=== PATIENT | male | born 1985 | race Caucasian/White ===

== ENCOUNTER 2017-04-19 14:08 | Inpatient (IN) ==
[2017-04-19] MEDS ORDERED: NS 1,000 ML IV ONE (14:35)
[2017-04-19] MEDS ORDERED: ZOFRAN IV ONE (14:35)
[2017-04-19] MEDS ORDERED: DILAUDID IV ONE ×2 (14:35→17:18)
[2017-04-19 14:47] LABS: MANUAL DIFF NEEDED? NO
[2017-04-19 14:49] LABS: BASO% 0.2 % (0.0-0.8); EOS# 0.01 X1000 (0.0-0.7); EOS% 0.1 % (0.0-10.0); HEMATOCRIT 46.8 % (42.0-52.0); IMM GRAN# 0.03 X1000 (0.0-0.04); IMM GRAN% 0.3 % (0.0-0.5); LYMPH% 9.7 % (20.5-51.1); MCHC 36.3 g/dL (33-37); MCV 88.1 FL (81-99); MONO# 0.87 X1000 (0.11-0.59); MONO% 8.5 % (1.7-9.3); MPV 10.3 FL (7.4-10.4); NEUT% 81.2 % (42.2-75.2); PLT 283 X1000 (130-400); RBC 5.31 XMIL (4.7-6.1)
[2017-04-19 15:10] LABS: AGAP 13; ALBUMIN 4.5 g/dL (3.5-5.0); ALKALINE PHOSPHATASE 70 U/L (32-122); AMYLASE 30 U/L (20-200); BUN 7 mg/dL (8-22); CALCIUM 9.1 mg/dL (8.8-10.2); CHLORIDE 99 mmol/L (98-107); COSMO 273; GOT 16 U/L (10-34); GPT 17 U/L (10-44); LIPASE 17 U/L (13-60); SODIUM 137 mmol/L (136-145); TCO2 25 mmol/L (25-35); TOTAL PROTEIN 7.1 g/dL (6.3-8.3)
[2017-04-19] MEDS ORDERED: TORADOL IV ONE (15:50)
[2017-04-19] MEDS ORDERED: TORADOL IM ONE (15:51)
[2017-04-19] MEDS ORDERED: TORADOL ONE ×2 (15:53→18:26)
--- NOTE | 2017-04-19 16:20 | Diag Imaging Result Doc PS360 ---
CT ABD/PELVIS W/ IV CONT ONLY - 04/19/2017 INDICATION: Lower abd pain TECHNIQUE: A CT dose reduction protocol was used. COMPARISON: None FINDINGS: The lung bases are clear and the heart size is normal. The vermiform appendix is very dilated and inflamed measuring over 1.2 cm. There is a small amount of intraperitoneal free air. There is also a small amount of fluid in the right lower quadrant and in the pelvis. No bowel obstruction. Urinary bladder, prostate, and rectum are normal. IMPRESSION: Perforated acute appendicitis. Very small amount of peritoneal free air. Small amount of free fluid in the right lower quadrant and the pelvis. A report was immediately called to the emergency room physician. Electronically signed by Baldemar Jimenez 04/19/2017 4:18 PM
[2017-04-19] MEDS ORDERED: ZOSYN 3.375 GM/NS 3.375 GM/50 ML IVPB IV ONE (16:24)
[2017-04-19] MEDS ORDERED: LEVAQUIN 750 MG/D5W 750 MG/150 ML IVPB IV ONE (16:24)
[2017-04-19] MEDS ORDERED: FLAGYL 500 MG/NS 500 MG/100 ML IVPB IV ONE (16:24)
--- NOTE | 2017-04-19 16:42 | PROVIDER DOCUMENTATION ---
This chart was entered by Aline Carrasco Scribe, acting as scribe for Gavin Teran MD. HPI-Abdominal Pain/GI Problem - General Chief Complaint: Abdominal Pain Stated Complaint: abd pain Time Seen by Provider: 04/19/17 14:23 Source: patient Allergies/Adverse Reactions: Patient Allergies Allergy/AdvReac Type Severity Reaction Status Date / Time Penicillins Allergy Unknown Verified 08/17/16 08:05 Home Medications: Home Medication List Medication Instructions Recorded Confirmed Last Taken Type Amphetamine Salts [Adderall] 04/19/17 04/19/17 Unknown History Levothyroxine [Synthroid] 100 microgm PO DAILY 04/19/17 04/19/17 Unknown History - History of Present Illness-ABD Nature of Presenting Problems: Pt is 31 y/o M presents to the ED via EMS for abdominal pain. Pt states generalized abdominal pain but worse in RLQ and LLQ. Pt states N/V/D. Pt is cussing when Dr. Teran started to ask questions. Pt states "I am not a bad ga". Pt denies F. Pt denies any sx on abdomen. Abdominal Pain Onset Location: reports: RLQ (worse), LLQ (worse), generalized abdomen Pain Radiation: reports: no radiation Quality of Pain: reports: aching Severity in ED: reports: moderate Onset/Duration: reports: 24 hours ago Timing: reports: still present Activities at Onset: reports: light activity Exposure to sick contacts?: No Modifying Factors: improves with: nothing Associated Symptoms: reports: diarrhea, nausea, vomiting Last BM: unsure Dark Stools Present?: reports: none noticed Rectal Bleeding: reports: none Rectal Pain: reports: none Emesis Description: reports: clear Bruising or Bleeding Gums?: No Similar Symptoms Previously?: Yes Recently seen or treated by another doctor?: No Review of Systems - Adult - REVIEW OF SYSTEMS - ADULT Constitutional: reports: no symptoms reported Eyes: reports: no symptoms reported Ears, Nose, Mouth & Throat: reports: no symptoms reported Cardiovascular: reports: no symptoms reported Respiratory: reports: no symptoms reported Gastrointestinal: reports: abdominal pain (generalized; worse in RLQ and LLQ), diarrhea, nausea, vomiting Genitourinary: reports: no symptoms reported Musculoskeletal: reports: no symptoms reported Integumentary: reports: no symptoms reported Neurological: reports: no symptoms reported Psychiatric: reports: no symptoms reported Endocrine: reports: no symptoms reported Hematologic/Lymphatic: reports: no symptoms reported Allergic/Immunologic: reports: no symptoms reported All Other Systems: Reviewed and Negative Past History - Adult - PAST MEDICAL HISTORY-ADULT Review of Records: reports: Nursing Assessment Review, Medications Reviewed, Social history reviewed & non-contributory. Major Childhood Illnesses: reports: denies history Cardiovascular: reports: denies history Respiratory: reports: asthma Gastrointestinal: reports: denies history Obstetrical/Gynecological: reports: denies history Genitourinary: reports: denies history Musculoskeletal: reports: denies history Neurological: reports: denies history Psychiatric: reports: bipolar Endocrine/Immune: reports: denies history Other Conditions: reports: denies history - PRIOR SURGERIES/PROCEDURES Surgical/Procedure History: reports: reviewed, not pertinent - IMMUNIZATION STATUS Childhood Immunizations: See Nurse Assessment Flu Vaccine: See Nurse Assessment - FAMILY HISTORY Family History: reviewed, not pertinent - SOCIAL HISTORY Smoking: cigarettes, greater than 1 pack/day Provider spent 3-5 mins advising pt. on dangers of tobacco.: Discussed manners to quit use, and f/u contacts for add'l counseling. Substance Use: alcohol Alcohol Use Frequency: occasionally Number of drinks per typical drinking period:: 2 drinks Living Situation: family Physical Exam-General - PHYSICAL EXAM-ADULT Initial Vital Signs Reviewed: Yes - CONSTITUTIONAL General Appearance: alert, moderate distress - EYES Eyes: PERRL/EOMI, pink conjunctivae - HEAD, EARS, NOSE, MOUTH & THROAT HENMT: normocephalic/atraumatic, moist mucous membranes, normal ENT inspection - NECK Neck: non-tender, normal inspection - RESPIRATORY Respiratory: chest non-tender, lungs clear, normal breath sounds - CARDIOVASCULAR Cardiovascular: normal peripheral pulses, regular rate, rhythm - GASTROINTESTINAL (ABDOMEN) Abdominal Exam: normal bowel sounds, soft, tenderness (generalized worse in RLQ and LLQ) - LYMPHATIC Lymphatic: no adenopathy - MUSCULOSKELETAL Back Exam: normal inspection Extremity: normal range of motion, normal inspection - SKIN Integumentary: normal color, normal turgor, warm/dry - NEUROLOGIC Neurologic: grossly normal - PSYCHIATRIC Psych/Mental Status: oriented x 3, disheveled Progress - PLAN OF CARE/RESULTS Progress/Plan/Lab Results: Orders Category Date Time Status Saline Loc DIRECTED Care 04/19/17 14:14 Active NPO Diet 04/19/17 14:14 Active AMYLASE [CHEM] Stat Lab 04/19/17 14:14 Ordered CBC WITH ELECTRONIC DIFF [HEME] Stat Lab 04/19/17 14:14 Ordered COMPREHENSIVE METABOLIC PANEL [CHEM] Stat Lab 04/19/17 14:14 Ordered LIPASE [CHEM] Stat Lab 04/19/17 14:[address] W/POSS RFLX CULT [URINALYSIS] Stat Lab 04/19/17 14:14 Uncollected URINE DRUG SCREEN PL Stat Lab 04/19/17 14:14 Uncollected Result Diagrams: 04/19/17 14:39 04/19/17 14:39 - REASSESSMENT Reassessment #1 Time Reassessed: 16:41 Status: improving (Pain inproved.) - CT/MRI 1 CT Study: Abdomen, Pelvis Impression: Abnormal (perforated acute appendicitis. very small amount of peritoneal free air. small amount of free fluid in the right lower quadrant and the pelvis.) Departure - Departure Date of Disposition Decision: 04/19/17 Time of Disposition Decision: 16:26 DIAGNOSIS: Acute perforated appendicitis Disposition: ADMITTED INPATIENT 09 Certified Medical Emergency: Emergent Condition: Stable Referrals and Follow-Ups: Nitin Boone [Primary Care Provider] - - Critical Care Note This patient required my direct & personal management of CC.: Yes Total Time (mins): 35 Critical Care Statement: This patient required my direct personal management to treat or rule out processes, the absence of which, could potentiallly result in sudden, clinically significant life or limb threatening deterioration. This chart was documented by the indicated scribe, (Aline Carrasco Scribe) and accurately reflects the services I performed and decisions made by me, Gavin Teran MD, as attested by the provider's signature.
[2017-04-19] MEDS ORDERED: XYLOCAINE-MPF 2% ONE (17:59)
[2017-04-19] MEDS ORDERED: FENTANYL ONE (17:59)
[2017-04-19] MEDS ORDERED: ZEMURON ONE ×2 (17:59→18:00)
[2017-04-19] MEDS ORDERED: VERSED ONE (17:59)
[2017-04-19] MEDS ORDERED: QUELICIN (DOSE) ONE (18:00)
[2017-04-19] MEDS ORDERED: DIPRIVAN 1% ONE (18:00)
[2017-04-19] MEDS ORDERED: SENSORCAINE 0.25%/EPI 1:200,000 ONE (18:18)
[2017-04-19] MEDS ORDERED: LR 1,000 ML ONE ×2 (18:19→19:58)
[2017-04-19] MEDS ORDERED: XYLOCAINE 1% ONE (18:19)
[2017-04-19] MEDS ORDERED: ZOFRAN ONE (18:26)
[2017-04-19] MEDS ORDERED: DECADRON ONE (18:26)
[2017-04-19] MEDS ORDERED: ROBINUL ONE (18:48)
[2017-04-19] MEDS ORDERED: NEOSTIGMINE ONE (18:48)
[2017-04-19] MEDS: DILAUDID ONE ×2 (20:04→20:10)
[2017-04-19] MEDS: LR 1,000 ML IV SCH (21:31)
[2017-04-19] MEDS: FLAGYL 500 MG/NS 500 MG/100 ML IVPB IV SCH (21:31)
[2017-04-19] MEDS: PERIDEX MT SCH (21:31)
--- NOTE | 2017-04-19 21:56 | HISTORY AND PHYSICAL ---
DATE OF ADMISSION: 04/19/2017 HISTORY OF PRESENT ILLNESS: This is a 31-year-old male who presented with 24 hours of abdominal pain. Initially started as a vague kind of the crampy-type pain, but today is localized to right lower quadrant. Went to [facility] where CT scan showed a dilated fluid-filled appendix with stranding and some air and fluid free within the abdomen concerning for a perforated appendicitis. He has been hemodynamically stable. He has had some anorexia, but otherwise normal bowel function. Was in his usual state of health prior to yesterday. MEDICAL HISTORY: Hypothyroidism PAST SURGICAL HISTORY: He has had ORIF of his left wrist. SOCIAL HISTORY: Smokes about half pack a day. Occasional alcohol. Works in construction. FAMILY HISTORY: Negative for cancer. PHYSICAL EXAMINATION: Vital signs: Temperature is 97 degrees, pulse 87, blood pressure 133/80, oxygen saturation 100% on room air. He is 150 pounds. 5 foot 10. General: He is alert, obviously uncomfortable, but in no acute distress. HEENT: There is no scleral icterus. No cervical scars or masses. Cardiovascular: Normal rate, regular rhythm. Pulmonary: No increased work of breathing. Abdomen: Soft. There is tenderness throughout with focal guarding and rebound. No scars on his abdomen. Integument: Warm, dry. No jaundice. No lower extremity edema. LABORATORY: White count 10, hematocrit 46, platelets 283,000. Creatinine 0.7, glucose 129, bilirubin is 1.1. AST ALT, alkaline phosphatase, lipase and amylase are all normal. CT scan with p.o. and IV contrast shows a perforated appendicitis. Small amount of peritoneal free air. Small amount of free fluid in the right lower quadrant. Pelvis, appendix measures over 1.2 cm. ASSESSMENT/PLAN: A 31-year-old white male with a perforated appendicitis. He does not have diffuse peritonitis, but he is focally tender. He is hemodynamically stable. I do not see a large phlegmon, and this is just a small amount of free fluid and just specks of air. As such, I think proceeding with laparoscopic appendectomy is indicated emergently. I had a long discussion with the patient of the risks, benefits, alternatives, including bleeding, infection, and the possibility if perforation is confirmed of abscess development and the need for a drain and likely antibiotics for a couple of days as an inpatient prior to going home with oral antibiotics. He understands all this. Consents. We will proceed to the operating room now for laparoscopic appendectomy. cc: Epifanio Fang MD MTDD
[2017-04-19] MEDS: NORCO-7.5 PO PRN (22:28)
[2017-04-20] MEDS: MORPHINE IV PRN ×7 (02:08→20:05)
--- NOTE | 2017-04-20 02:41 | OPERATIVE NOTE ---
PROCEDURE DATE: 04/19/2017 PREOPERATIVE DIAGNOSIS: Perforated appendicitis. POSTOPERATIVE DIAGNOSIS: Perforated appendicitis. PROCEDURE PERFORMED: Laparoscopic appendectomy. SURGEON: Epifanio Fang MD ANESTHESIA: General. ESTIMATED BLOOD LOSS: 10 mL. SPECIMENS: 1. Peritoneal fluid for culture. 2. Appendectomy. COMPLICATIONS: None. INDICATIONS: This is a 31-year-old male with a 24-hour history of worsening abdominal pain, localized in the right lower quadrant. CT scan showed evidence of perforated appendicitis. Laparoscopic appendectomy was indicated. OPERATIVE FINDINGS: There was gross purulent ascites throughout all quadrants of the abdomen. There was no evidence of focal abscess and this was diffuse. The appendix had a necrotic perforation at the base; however, at the most cecal aspect, it was healthy and the cecum was healthy. There was erythema consistent with peritonitis throughout. OPERATIVE NOTE: The risks, benefits, and alternatives were discussed with the patient and he consented to the procedure. He was seen preoperatively and surgery to be performed was confirmed. He was already started on scheduled antibiotics by the ER. He was taken to the operating room after he consented to the procedure and was placed in the supine position. General anesthesia was induced. A Ribeiro catheter was placed. Hair was removed with clippers and his abdomen was prepped with chlorhexidine solution and draped in the usual fashion. After a time-out was performed, a curvilinear infraumbilical incision was made and carried down to the level of the fascia after injecting a local anesthetic. We elevated the fascia, made an incision along the midline, and entered the abdomen in open controlled fashion, placing a 12 mm Lori trocar. We then placed a 5 mm trocar in the suprapubic location and an 11 mm in the left lower quadrant. We inspected the abdomen. We suctioned the peritoneal fluid till clear and obtained culture. We then identified the appendix by isolating the cecum and following this down. It was stuck to the retroperitoneum but we were able to easily mobilize this up. With a single fire of a 40 mm gold load stapler, we removed both the appendix and the mesoappendix as this was quite indurated and inflamed below the level perforation across healthy base of the appendix and cecum. A second fire of a 30 mm removed the residual peritoneal attachments to the appendix. We protect the terminal ileum through all this. We copiously irrigated the abdomen with greater than 2 L of fluid and suctioned until clear. We placed him in reverse Trendelenburg and suctioned all fluid out of his pelvis. We inspected and everything seemed to be okay. We then placed a Alonzo drain in the right lower quadrant through a stab incision and placed this down by the appendiceal stump and right paracolic gutter into the pelvis and secured this with a nylon suture. We used a Heath-Kamilah device to close the left lower quadrant incision with a Vicryl suture. We desufflated the abdomen and brought the trocars out under direct visualization. We closed the midline and brought the appendix out through the umbilical incision. We closed the fascia with interrupted 0 Vicryl suture. We irrigated the superficial wound given the purulence that was here and closed these with Monocryl and Dermabond. He tolerated the procedure well. The Ribeiro was removed at the end of the case. Counts were correct x2. There were no identified complications. He was transferred to the PACU in good condition. I spoke with the family. cc: Epifanio Fang MD
[2017-04-20] MEDS: FLAGYL 500 MG/NS 500 MG/100 ML IVPB IV SCH ×4 (03:39→22:53)
[2017-04-20 04:41] LABS: BILIRUBIN URINE NEGATIVE (NEGATIVE); BLOOD URINE NEGATIVE (NEGATIVE); COLOR ORANGE; GLUCOSE URINE 300 mg/dL (NEGATIVE); LEUKOCYTES URINE TRACE (NEGATIVE); NITRITE URINE NEGATIVE (NEGATIVE); PH URINE 6.5; PROTEIN URINE TRACE mg/dL (NEGATIVE); SP GRAVITY URINE 1.017; TURBIDITY URINE CLEAR (CLEAR); URINE MICRO REVIEW NEEDED? NO; URINE SOURCE CLEAN CATCH; UROBILINOGEN URINE NORMAL (NORMAL)
[2017-04-20 04:43] LABS: UR EPITHELIAL CELLS <10 /HPF (<10); URINE BACTERIA NEGATIVE /HPF; URINE CULTURE NEEDED? YES; URINE RBC <10 /HPF (<10); URINE WBC <10 /HPF (<10)
[2017-04-20 05:25] LABS: UR AMPHETAMINES QUAL NONE DETECTED (NONE DETECT); UR BARBITUATES QUAL NONE DETECTED (NONE DETECT); UR BENZODIAZEPIN QUAL PRESUMPTIVE POSITIVE (NONE DETECT); UR CANNABINOIDS QUAL NONE DETECTED (NONE DETECT); UR COCAINE QUAL NONE DETECTED (NONE DETECT); UR METHADONE QUAL NONE DETECTED (NONE DETECT); UR OPIATES QUAL PRESUMPTIVE POSITIVE (NONE DETECT); UR OXYCODONE QUAL NONE DETECTED (NONE DETECT); UR PCP QUAL NONE DETECTED (NONE DETECT)
[2017-04-20] MEDS: SYNTHROID PO SCH ×2 (07:45→09:44)
[2017-04-20] MEDS: PERIDEX MT SCH ×3 (07:45→20:05)
[2017-04-20] MEDS: LR 1,000 ML IV SCH ×3 (07:50→20:05)
[2017-04-20] MEDS: NORCO-7.5 PO PRN ×3 (09:48→22:53)
--- NOTE | 2017-04-20 15:54 | PROGRESS NOTE ---
DATE: 04/20/2017 SUBJECTIVE: Appropriate pain, but well controlled overnight. No nausea or vomiting. He is tolerating some clear liquids. No fevers. OBJECTIVE: Vital Signs: Pulse 71, blood pressure 107/60, high 90s to 100% on 2 L nasal cannula. Abdomen: Soft, appropriately tender. TAWNY drain serosanguineous. Incisions are intact. No cellulitis. ASSESSMENT/PLAN: A 31-year-old male status post laparoscopic appendectomy for perforated appendicitis with gross purulent peritonitis at the time of surgery. He is doing okay. He has got a drain in place. We copiously irrigated his abdomen. I have him on antibiotics, although peritoneal fluid Gram stains were not showing any bacteria. It was grossly purulent and foul- smelling. Will continue treating him with antibiotics currently for the next 24 to 48 hours. As he improves, will repeat labs tomorrow if his white counts normalize. Plan to transition to oral antibiotics and let him go home. I have started him on deep vein thrombosis prophylaxis, encourage him to get out of bed. We will decrease his fluid and advance diet as tolerated. cc: Epifanio Fang MD
[2017-04-20] MEDS: LOVENOX SUBQ SCH (16:13)
[2017-04-20] MEDS: LEVAQUIN 750 MG/D5W 750 MG/150 ML IVPB IV SCH (17:02)
[2017-04-20] MEDS: ZOFRAN IV PRN (22:53)
[2017-04-21] MEDS: MORPHINE IV PRN ×4 (01:05→13:27)
[2017-04-21] MEDS: ZOFRAN IV PRN ×5 (04:08→21:07)
[2017-04-21] MEDS: NORCO-7.5 PO PRN ×5 (04:08→21:07)
[2017-04-21] MEDS: FLAGYL 500 MG/NS 500 MG/100 ML IVPB IV SCH ×4 (04:08→21:09)
[2017-04-21] MEDS: PERIDEX MT SCH ×2 (08:05→21:08)
[2017-04-21] MEDS: SYNTHROID PO SCH (08:05)
[2017-04-21 09:49] LABS: MANUAL DIFF NEEDED? NO
[2017-04-21 09:54] LABS: BASO% 0.7 % (0.0-0.8); EOS# 0.12 X1000 (0.0-0.7); HEMATOCRIT 38.7 % (42.0-52.0); HEMOGLOBIN 13.6 g/dL (14.0-18.0); IMM GRAN# 0.02 X1000 (0.0-0.04); IMM GRAN% 0.2 % (0.0-0.5); LYMPH# 1.25 X1000 (1.2-3.4); LYMPH% 10.7 % (20.5-51.1); MCH 32.3 PG (27-31); MCHC 35.1 g/dL (33-37); MCV 91.9 FL (81-99); MONO# 0.85 X1000 (0.11-0.59); MONO% 7.3 % (1.7-9.3); MPV 10.1 FL (7.4-10.4); NEUT% 80.1 % (42.2-75.2); PLT 186 X1000 (130-400); RBC 4.21 XMIL (4.7-6.1)
[2017-04-21 10:28] LABS: AGAP 11; BUN 5 mg/dL (8-22); CALCIUM 8.5 mg/dL (8.8-10.2); CHLORIDE 102 mmol/L (98-107); COSMO 273; POTASSIUM 3.6 mmol/L (3.5-5.1); SODIUM 138 mmol/L (136-145); TCO2 25 mmol/L (25-35)
--- NOTE | 2017-04-21 15:17 | PROGRESS NOTE ---
DATE: 04/21/2017 SUBJECTIVE: He is having more pain today. No nausea or vomiting. He is ambulating, voiding, tolerating some liquids. OBJECTIVE: No fevers. Pulse 71, blood pressure 106/60, O2 saturation 100% on room air. Abdomen diffusely tender. Incision clean, dry, intact. Drain output is serosanguineous but is very cloudy. I do not see any obvious stool or bile in the drain. White count at 11,000, hematocrit is 38, creatinine is 0.8. ASSESSMENT AND PLAN: This 31-year-old male with a perforated appendicitis status post laparoscopic appendectomy is doing okay. His white count is mildly up, but no fevers. I do worry about his drain being pretty cloudy. Peritoneal fluid cultures show gram- negative rods but speciation still pending. Will continue Current antibiotics for now, IV fluids , and will increase his [place] 2 tablets, and change morphine to Dilaudid as he is having worsening pain today. Continue to monitor. He needs inpatient for ongoing IV fluids to hopefully reduce his chance of an intraabdominal abscess. cc: Epifanio Fang MD [facility]
[2017-04-21] MEDS: LOVENOX SUBQ SCH (15:34)
[2017-04-21] MEDS: LR 1,000 ML IV SCH (16:45)
[2017-04-21] MEDS: LEVAQUIN 750 MG/D5W 750 MG/150 ML IVPB IV SCH (17:52)
[2017-04-21] MEDS: DILAUDID IV PRN ×2 (17:52→21:51)
[2017-04-22] MEDS: DILAUDID IV PRN ×3 (00:52→10:11)
[2017-04-22] MEDS: FLAGYL 500 MG/NS 500 MG/100 ML IVPB IV SCH ×3 (01:51→10:11)
[2017-04-22] MEDS: NORCO-7.5 PO PRN ×3 (01:57→12:24)
[2017-04-22] MEDS: ZOFRAN IV PRN ×3 (02:01→10:11)
[2017-04-22] MEDS: SYNTHROID PO SCH ×2 (06:24→08:18)
[2017-04-22 08:01] VITALS: BP 112/63
[2017-04-22] MEDS: LR 1,000 ML IV SCH (08:18)
[2017-04-22] MEDS: PERIDEX MT SCH (08:19)
--- NOTE | 2017-06-09 07:11 | DISCHARGE SUMMARY ---
ADMISSION DATE: 04/19/2017 DISCHARGE DATE: 04/22/2017 ADMITTING DIAGNOSIS: Perforated appendicitis. DISCHARGE DIAGNOSIS: Perforated appendicitis. PROCEDURE PERFORMED: Laparoscopic appendectomy. HISTORY OF PRESENT ILLNESS: This is a 32-year-old male who presented with a several day history of right lower quadrant abdominal pain. The CT scan shows a dilated fluid-filled appendix with some free fluid and a little bit of air around the appendix concerning for perforation. Medical history is for hypothyroidism. He has had an ORIF of his left wrist and I believe a traumatic head injury and works in construction. HOSPITAL COURSE: He was seen in the Emergency Department. He was tender in the right lower quadrant but no diffuse peritonitis. He had focal guarding in the right lower quadrant. He is afebrile. There is no tachycardia. White count was normal at 10. The CT scan showed the above findings. As such, he was taken to the operating room for laparoscopic appendectomy. For details, please see dictated operative note. Postoperatively, he was admitted and we kept him for an extra couple of days for IV antibiotics given the perforation that we found. He had a drain that was ultimately removed. His diet was advanced. He tolerated this well. He was able to void without difficulty. Pain was controlled. Incisions all looked clean, dry, and intact. On the day of his discharge, he was felt safe for discharge home as he had no fevers and no tachycardia. We transitioned him to oral antibiotics with short interval follow up in my office within the next week. Also, I discussed signs and symptoms of intra-abdominal abscess, worsening abdominal pain, fullness, diarrhea, and fevers. He understood all of these and will call if these develop. This will prompt a CT scan as an outpatient. Otherwise, continue on GI soft diet. Avoid heavy lifting. Keep his incisions clean and dry, DISPOSITION: Home to self-care. He does have family that is looking after him as well. cc: Epifanio Fang MD
== END 2017-04-22 13:30 | disposition home or self-care (01) ==
LOC: P.ED 14:08 → 4N 17:08
PROVIDERS: ADMIT Surgery; ATTEND Surgery